=== PATIENT | female | born 1980 | race Caucasian/White ===

== ENCOUNTER 2018-12-24 19:40 | Emergency (ER) | payer MEDICAID ==
[~2018-12-24] VITALS: Ht 154.9 cm; Wt 90.8 kg
[2018-12-24 19:44] VITALS: Ht 154.9 cm; Wt 90.8 kg
[2018-12-24] MEDS ORDERED: KETOROLAC 30 MG INJ IM STA (21:12)
[2018-12-24] MEDS ORDERED: NAPR-985 PO (21:48)
[2018-12-24 21:55] VITALS: BP 129/71; PULSE 65; RESP 18
--- NOTE | 2018-12-24 23:25 | ERD ---
ER Documentation Chief Complaint Chief Complaint HEADACHE X1DAY; NO TOHER S/S HPI This patient is a 38-year-old female with no significant past medical history presents to the emergency department complaining of localized frontal headache which began gradually at 8 AM this morning. Her current pain level is rated 8 /10 in severity. Pain is constant. She took approximately 400 mg of Advil at 5 PM today with some relief. She denies any photophobia, photophobia, fevers, neck pain, chills, dizziness, visual changes, or other symptoms at this time. ROS All systems reviewed and are negative except as per history of present illness. Medications Home Meds Active Scripts Naproxen* (Naprosyn*) 500 Mg Tablet, 500 MG PO BID PRN for PAIN AND/OR INFLAMMATION, #30 TAB Prov:DALE MILLS PA-C 12/24/18 Allergies Allergies: Coded Allergies: No Known Allergies (Verified Allergy, Unknown, 11/24/06) PMhx/Soc Medical and Surgical Hx: pt denies Surgical Hx History of Surgery: No Anesthesia Reaction: No Hx Neurological Disorder: No Hx Respiratory Disorders: No Hx Cardiac Disorders: Yes (HLD) Hx Psychiatric Problems: No Hx Miscellaneous Medical Probl: No Hx Alcohol Use: No Hx Substance Use: No Hx Tobacco Use: No FmHx Family History: No diabetes Physical Exam Vitals Vital Signs Date Temp Pulse Resp B/P (MAP) Pulse Ox O2 O2 Flow FiO2 Time Delivery Rate 12/24/18 97.8 65 18 129/71 100 Room Air 21:55 (90) 12/24/18 98.3 76 18 124/61 99 19:44 (82) Physical Exam Const: No acute distress Head: Atraumatic Eyes: Normal Conjunctiva ENT: Normal External Ears, Nose and Mouth. Neck: Full range of motion. No meningismus. Resp: Clear to auscultation bilaterally Cardio: Regular rate and rhythm, no murmurs Ext: No cyanosis, or edema Neuro: M/S: Alert and oriented Face: EOMI, face and pharynx with normal sensation and function Motor: Normal strength throughout Sensation: Normal sensation throughout Speech: Normal Cerebel: Normal coordination Normal gait Psych: Normal Mood and Affect Results 24 hrs Laboratory Tests Test 12/24/18 21:23 POC Beta HCG, Qualitative NEGATIVE Current Medications Medications Dose Sig/Shobha Start Time Status Last (Trade) Ordered Route PRN Stop Time Admin Dose Reason Admin Ketorolac 30 mg ONCE STAT 12/24/18 DC 12/24/18 Tromethamine IM 21:12 21:25 (Toradol) 12/24/18 21:13 Procedures/MDM Patient is a 38-year-old female presenting to the emergency department with complaints of headache. Differential diagnoses include meningitis, intracranial hemorrhage, subarachnoid hemorrhage, CVA, TIA, tension headache, migraine, cluster headache, and others. I doubt any life threatening etiology at this time. Patient improved in the department after treatment with Toradol. Pt is to follow-up with primary care physician and return here immediately for any new or worsening symptoms. Head Ct Risks and Benefits: CT Scan of the head was discussed with all present and we agree at this time that a trial of watchful waiting is most appropriate. Patient's neurologic symptoms have stabilized while they have been evaluated in the department and are appropriate for outpatient work up. No e/o meningitis, intracranial bleed, seizure, stroke. Departure Diagnosis: Primary Impression: Headache Condition: Fair Patient Instructions: Self-Care for Headaches Ref[facility]: [facility] Usted se napoles hecho un examen mdico de control que le indica que no est en lucy condicin que requiera tratamiento urgente en el Departamento de Emergencia. Un estudio ms profundo y el tratamiento de ortiz condicin pueden esperar sin ningn riesgo hasta que usted sea atendida/o en el consultorio de ortiz mdico o lucy clnica. Es responsabilidad suya arreglar lucy tete para el seguimiento del sandra. MANEJO DE CONDICIONES NO URGENTES EN EL FUTURO 1) Si usted tiene un mdico de atencin primaria: Usted debera llamar a ortiz mdico de atencin primaria antes de venir al departamento de emergencia. Despus de las horas de consultorio, ortiz doctor o ortiz asociado/a est disponible por telfono. El mdico o enfermero de leo en el servicio telefnico puede asesorarle por manuela medio para atender el problema, o sandra contrario se puede programar lucy tete. 2) Si usted no tiene un mdico de atencin primaria: Llame al mdico o clnica de referencia que aparece abajo chirag las horas de consultorio para hacer lucy tete para que le vean. CLINICAS: [facility] [phone] [address] [facility] [phone] [facility] [phone] [facility] [phone] [facility] [phone] [address] [facility] [phone] [address] Additional Instructions: Llame al doctor MAANA y mariaa lucy TETE PARA DENTRO DE 1-2 FELDMAN.Dgale a la secretaria que nosotros le instruimos hacer esta tete.Avise o llame si ortiz condicin se empeora antes de la tete. Regresa aqui si peor o no mejor. DALE MILLS PA-C Dec 24, 2018 23:25
== END 2018-12-24 21:58 | disposition home or self-care (01) ==
LOC: FTE 19:40
DX: R51 Headache (principal)
CPT/HCPCS: 81025; 96372; J1885; Z7502